=== PATIENT | female | born 1940 | race Caucasian/White ===

== ENCOUNTER → 2019-10-10 09:16 | Outpatient (BNVA) | payer MEDICARE, SELFPAY | PROVIDERS: Referring Provider Family Medicine; Visit Provider Internal Medicine Rheumatology | DX: M31.6 Other giant cell arteritis (principal); Z11.59 Encounter for screening for other viral diseases; Z11.1 Encounter for screening for respiratory tuberculosis; Z79.899 Other long term (current) drug therapy; Z79.52 Long term (current) use of systemic steroids; H54.8 Legal blindness, as defined in USA | CPT/HCPCS: 36415; 80076; 82565; 85651; 86140; 86480; 99205 ==

== ENCOUNTER → 2019-10-10 11:03 | Outpatient (BNVA) | payer MEDICARE, SELFPAY | PROVIDERS: Referring Provider Family Medicine; Visit Provider Internal Medicine Rheumatology | DX: Z11.59 Encounter for screening for other viral diseases (principal); Z79.899 Other long term (current) drug therapy; Z79.52 Long term (current) use of systemic steroids; M31.6 Other giant cell arteritis; H54.8 Legal blindness, as defined in USA | CPT/HCPCS: 82306; 85025; 86704; 86706; 86803; 87340 ==

== ENCOUNTER → 2022-02-05 10:13 | Outpatient (BNVA) | payer MEDICARE, SELFPAY | PROVIDERS: PCP Family Medicine; Visit Provider Internal Medicine Rheumatology | DX: M35.3 Polymyalgia rheumatica (principal); M31.6 Other giant cell arteritis; Z79.899 Other long term (current) drug therapy; Z79.52 Long term (current) use of systemic steroids; H54.62 Unqualified visual loss, left eye, normal vision right eye; R03.0 Elevated blood-pressure reading, without diagnosis of hypertension; Z96.643 Presence of artificial hip joint, bilateral | CPT/HCPCS: 99214 ==

== ENCOUNTER → 2022-05-26 10:13 | Outpatient (BNVA) | payer MEDICARE, SELFPAY | PROVIDERS: PCP Family Medicine; Visit Provider Internal Medicine Rheumatology | DX: M31.6 Other giant cell arteritis (principal); M35.3 Polymyalgia rheumatica; Z79.899 Other long term (current) drug therapy; Z96.643 Presence of artificial hip joint, bilateral; H54.62 Unqualified visual loss, left eye, normal vision right eye; Z79.52 Long term (current) use of systemic steroids | CPT/HCPCS: 99214 ==

== ENCOUNTER → 2022-12-16 11:30 | Outpatient (BNVA) | payer MEDICARE, SELFPAY | PROVIDERS: PCP Family Medicine; Visit Provider Internal Medicine Rheumatology | DX: M31.6 Other giant cell arteritis (principal); Z79.899 Other long term (current) drug therapy; M35.3 Polymyalgia rheumatica; H54.8 Legal blindness, as defined in USA | CPT/HCPCS: 99214 ==